=== PATIENT | female | born 1935 | race Caucasian/White ===

== ENCOUNTER 2019-10-24 15:16 | Emergency (ER) | payer MEDICARE ==
[2019-10-24] MEDS ORDERED: Bupivacaine 0.5% 10 ML SDV INJECT ONE (16:07)
[2019-10-24] MEDS ORDERED: Triamcinolone Acetonide 40 MG/ML 1 ML SDV INJECT PRN (16:07)
[2019-10-24 16:16] VITALS: BP 162/76; PULSE 81
[2019-10-24] MEDS ORDERED: Gabapentin 300 MG Cap PO ONE (16:50)
--- NOTE | 2019-10-24 16:55 | EDM.PDOC ---
ED HPI GENERAL MEDICAL PROBLEM - General Chief Complaint: Headache Stated Complaint: LEFT SIDE HEADACHE Time Seen by Provider: 10/24/19 15:45 Source of Information: Reports: Patient History Limitations: Reports: No Limitations - History of Present Illness INITIAL COMMENTS - FREE TEXT/NARRATIVE: 84-year-old female with left-sided scalp pain, very sharp and recurring in nature. Started about 3 hours ago, she has no pain in between painful purse which last 1 to 3 seconds. It is very localized to the left parietal scalp. She has had no trauma, fevers or chills, nausea or vomiting or visual complaints. She has not had this pain in the past. They are occurring about every 1 to 2 minutes and lasting a few seconds. Onset: Sudden Duration: Hour(s): (Started 3 hours ago) Location: Reports: Head (Left parietal scalp) Associated Symptoms: Reports: No Other Symptoms Headache Pain Score (Numeric/FACES): 8 - Related Data Allergies Allergy/AdvReac Type Severity Reaction Status Date / Time No Known Allergies Allergy Verified 10/24/19 15:46 Home Meds: Home Meds Aspirin [[place] Aspirin] 81 mg PO DAILY 11/04/14 [History] Losartan [Cozaar] 100 mg PO DAILY 11/04/14 [History] Metoprolol Succinate [Toprol Xl] 100 mg PO DAILY 11/04/14 [History] atorvaSTATin [Lipitor] 40 mg PO BEDTIME 11/04/14 [History] Past Medical History Cardiovascular History: Reports: High Cholesterol, Hypertension Respiratory History: Reports: None Gastrointestinal History: Reports: None Genitourinary History: Reports: None 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: Musculoskeletal History: Reports: None Neurological History: Reports: None Psychiatric History: Reports: None Endocrine/Metabolic History: Reports: None Hematologic History: Reports: None Immunologic History: Reports: None Oncologic (Cancer) History: Reports: None Dermatologic History: Reports: None - Infectious Disease History Infectious Disease History: Reports: Chicken Pox - Past Surgical History HEENT Surgical History: Reports: Adenoidectomy, Tonsillectomy Other GI Surgeries/Procedures: Tubal ligation Social & Family History - Tobacco Use Tobacco Use Comment: rarely - Caffeine Use Caffeine Use: Reports: Coffee - Recreational Drug Use Recreational Drug Use: No ED ROS GENERAL - Review of Systems Review Of Systems: See Below Constitutional: Denies: Fever, Chills, Malaise HEENT: Denies: Vision Change Respiratory: Denies: Shortness of Breath Cardiovascular: Denies: Chest Pain GI/Abdominal: Denies: Abdominal Pain, Nausea, Vomiting Skin: Denies: Bruising, Rash Neurological: Reports: Headache (As described in HPI) Psychiatric: Reports: No Symptoms - Physical Exam Exam: See Below Exam Limited By: No Limitations General Appearance: Alert, No Apparent Distress, Other (Very uncomfortable during her brief episodes of pain) Eye Exam: Bilateral Eye: EOMI Head Exam: Atraumatic, Normocephalic, Other (No rash over painful area). No: Scalp Ecchymosis, Scalp Hematoma Neck: Supple, Non-Tender Respiratory/Chest: No Respiratory Distress, Lungs Clear Neuro Exam (Abbreviated): Alert, Oriented, No Motor/Sensory Deficits Psychiatric: Normal Affect, Normal Mood Skin Exam: Warm, Dry Course - Vital Signs Last Recorded V/S: Last Vital Signs Temp 96.7 F L 10/24/19 15:38 Pulse 81 10/24/19 16:15 Resp 18 10/24/19 16:15 BP 162/76 H 10/24/19 16:15 Pulse Ox 96 10/24/19 16:15 - Orders/Labs/Meds Meds: Medications Discontinued Medications Generic Name Dose Route Start Last Admin Trade Name Aroldoq PRN Reason Stop Dose Admin Bupivacaine HCl 10 ml 10/24/19 16:07 10/24/19 16:19 Sensorcaine-Mpf 0.5% INJECT 10/24/19 16:08 10 ml ONETIME ONE Administration Gabapentin 300 mg 10/24/19 16:50 10/24/19 16:58 Neurontin PO 10/24/19 16:51 300 mg ONETIME ONE Administration Triamcinolone Acetonide 40 mg 10/24/19 16:07 10/24/19 16:19 Kenalog-40 INJECT 40 mg ASDIRECTED PRN Administration Pain (moderate 4-6) - Re-Assessments/Exams Free Text/Narrative Re-Assessment/Exam: 10/24/19 16:53 The scalp was examined closely for rash or lesions and none was seen. The scalp was then sterilized in 2 separate spots with Betadine, and 0.5% Marcaine with a small amount of Kenalog was infiltrated into the dorsal upper neck, and along a line on the posterior aspect of the parietal scalp. She was observed for 20 minutes and it did not seem to decrease the frequency of the neuralgia. The scalp was sterilized along the nerve just above the posterior auricular area and a fan of injections were done with the Marcaine and Kenalog at the inferior posterior aspect of the parietal scalp. This did seem to decrease the intensity and frequency of the painful bursts, however she was still having a few. She was then given 300 mg of oral gabapentin, 10/24/19 17:09 Patient was discharged to the care of her daughter, they will return tomorrow if there is not a significant improvement. Departure - Departure Time of Disposition: 17:13 Disposition: Home, Self-Care 01 Clinical Impression: Neuropathy, cranial - Discharge Information Instructions: Neuropathic Pain Referrals: PCP,None [Primary Care Provider] - Forms: ED Department Discharge Care Plan Goals: Rest tonight, return tomorrow if not improving satisfactorily. Return sooner if worsening or pain is more persistent or uncontrolled. Sepsis Event Note - Evaluation Sepsis Screening Result: No Definite Risk - Focused Exam Date Exam was Performed: 10/25/19 Time Exam was Performed: 07:09
== END 2019-10-24 17:45 | disposition home or self-care (01) ==
LOC: JP.ED 15:16
DX: G52.7 Disorders of multiple cranial nerves (principal); I10 Essential (primary) hypertension; E78.00 Pure hypercholesterolemia, unspecified; Z79.899 Other long term (current) drug therapy; Z79.82 Long term (current) use of aspirin
CPT/HCPCS: 20552; 99283; A9270; J3301; J3490